=== PATIENT | female | born 1960 | race Two or more races ===

== ENCOUNTER 2019-04-24 12:56 | Inpatient (IN) | payer OTHER ==
[~2019-04-24] VITALS: Ht 160 cm; Wt 78.5 kg
[2019-05-04] MEDS ORDERED: LOSARTAN-HCTZ1 EAC2 PO (11:11)
[2019-05-04] MEDS ORDERED: FUSION PLUS CA1 EACH PO (11:12)
[2019-05-13] MEDS ORDERED: ABATINEX680 MG (12:02)
[2019-05-13] MEDS ORDERED: LEVAQUIN500 MG (12:02)
[2019-05-13] MEDS ORDERED: OXYC1TAB9 (12:02)
== END 2019-05-12 16:37 | disposition home or self-care (01) | DRG 330 ==
LOC: O/R 05-09 05:20 → SURG 05-09 05:20
PROVIDERS: Urology; ADMIT Colon & Rectal Surgery
PROC: 0DTU0ZZ Resection of Omentum, Open Approach (ICD-10-PCS; 2019-05-09)
PROC: 0WBH0ZZ Excision of Retroperitoneum, Open Approach (ICD-10-PCS; 2019-05-09)
PROC: 0T788DZ Dilation of Bilateral Ureters with Intraluminal Device, Via Natural or Artificial Opening Endoscopic (ICD-10-PCS; 2019-05-09)
PROC: BT1DZZZ Fluoroscopy of Right Kidney, Ureter and Bladder (ICD-10-PCS; 2019-05-09)
PROC: 0DTN0ZZ Resection of Sigmoid Colon, Open Approach (ICD-10-PCS; principal; 2019-05-09 19:45)
PROC: 07TB0ZZ Resection of Mesenteric Lymphatic, Open Approach (ICD-10-PCS; 2019-05-09 19:45)
PROC: 0DT80ZZ Resection of Small Intestine, Open Approach (ICD-10-PCS; 2019-05-09 19:45)
PROC: 30233N1 Transfusion of Nonautologous Red Blood Cells into Peripheral Vein, Percutaneous Approach (ICD-10-PCS; 2019-05-11)
DX: C18.0 Malignant neoplasm of cecum (principal); C78.6 Secondary malignant neoplasm of retroperitoneum and peritoneum; N13.1 Hydronephrosis with ureteral stricture, not elsewhere classified; D50.0 Iron deficiency anemia secondary to blood loss (chronic); R73.01 Impaired fasting glucose; R59.0 Localized enlarged lymph nodes; I11.9 Hypertensive heart disease without heart failure

== ENCOUNTER 2019-05-13 11:06 | Emergency (ER) | payer OTHER ==
[~2019-05-13] VITALS: Ht 160 cm; Wt 75.7 kg
[~2019-05-13 11:06] MED LIST: FUSION PLUS CA1 EACH PO; LOSARTAN-HCTZ1 EAC2 PO
[2019-05-13] MEDS ORDERED: ABATINEX680 MG (12:02)
[2019-05-13] MEDS ORDERED: LEVAQUIN500 MG (12:02)
[2019-05-13] MEDS ORDERED: OXYC1TAB9 (12:02)
== END 2019-05-13 17:06 | disposition home or self-care (01) ==
LOC: ER 11:06
DX: R10.84 Generalized abdominal pain (principal)

== ENCOUNTER 2019-06-26 08:46 | Outpatient (CLI) | payer OTHER ==
[~2019-06-26 08:46] MED LIST changes: +ABATINEX680 MG; +LEVAQUIN500 MG; +OXYC1TAB9
== END 2019-06-26 08:56 | disposition home or self-care (01) ==
LOC: LAB 08:46
DX: C18.3 Malignant neoplasm of hepatic flexure (principal); C18.0 Malignant neoplasm of cecum; K92.1 Melena; Z85.038 Personal history of other malignant neoplasm of large intestine; I10 Essential (primary) hypertension

== ENCOUNTER 2019-06-28 04:50 | Day surgery (SDC) | payer OTHER | END 2019-06-28 13:25 | disposition home or self-care (01) | LOC: CIR.AMB 04:50 | DX: C18.3 Malignant neoplasm of hepatic flexure (principal) | CPT/HCPCS: 36561; C1751 ==